=== PATIENT | female | born 1980 | race Caucasian/White ===

== ENCOUNTER → 2017-08-07 | Outpatient (CLI) | payer MEDICAID, OTHER ==
--- NOTE | 2017-08-07 10:19 | US ---
EXAMINATION TYPE: US pelvis complete transvag DATE OF EXAM: 08/07/2017 COMPARISON: US dated 01/10/2011 CLINICAL HISTORY: N94.10 Pain in Female Genitalia on Roberta. TECHNIQUE: Transvaginal (TV) and Transabdominal (TA) . Transabdominal sonographic images of the pel vis were acquired. Transvaginal sonographic images were medically necessary to better assess the fol lowing anatomy: rt ovary. Date of LMP: 07/24/2017 EXAM MEASUREMENTS: Uterus: 8.2 x 3.9 x 6.2 cm Endometrial Stripe: 0.6 cm Right Ovary: 2.6 x 1.1 x 2.8 cm Left Ovary: 2.0 x 1.5 x 2.1 cm 1. Uterus: Retroverted wnl 2. Endometrium: wnl 3. Right Ovary: wnl 4. Left Ovary: Dominant follicle measures 1.3 cm with peripheral vascular flow. 5. Bilateral Adnexa: wnl 6. Posterior cul-de-sac: trace free fluid IMPRESSION: Dominant left ovarian follicle with peripheral vascular flow, likely physiologic but coul d represent an involuting cyst. Trace fluid within the posterior cul-de-sac is likely physiologic.
== END | disposition home or self-care (01) ==
LOC: RADUSWWP 08:26
PROVIDERS: ATTEND Family Medicine
DX: N94.10 Unspecified dyspareunia (principal)
CPT/HCPCS: 76830; 76856

== ENCOUNTER 2018-11-13 15:50 | Emergency (ER) | payer OTHER, MEDICAID ==
[2018-11-13 15:53] VITALS: BP 119/76; PULSE 82; RESP 20; TEMP 97.9
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
--- NOTE | 2018-11-13 16:39 | XR ---
EXAMINATION TYPE: XR chest 2V DATE OF EXAM: 11/13/2018 COMPARISON: None HISTORY: Pain TECHNIQUE: Frontal and lateral views of the chest are obtained. FINDINGS: Heart and mediastinum are normal. Lungs are clear. Diaphragm is normal. Bony thorax appear s normal. IMPRESSION: Normal chest.
--- NOTE | 2018-11-13 16:40 | XR ---
EXAMINATION TYPE: XR lumbar spine 2 or 3V DATE OF EXAM: 11/13/2018 COMPARISON: NONE HISTORY: Pain TECHNIQUE: 3 views FINDINGS: Lumbar vertebra have normal spacing and alignment. Posterior elements are intact. Sacroilia c joints are intact. There is no compression fracture. IMPRESSION: Negative lumbar spine exam.
[2018-11-13] MEDS ORDERED: traMADol 50 MG STARTER PACK 3 TAB BTL PO STA (16:44)
== END 2018-11-13 17:05 | disposition home or self-care (01) ==
LOC: EC 15:50
DX: S09.90XA Unspecified injury of head, initial encounter (principal); R51 Headache; M54.5 Low back pain; Z88.0 Allergy status to penicillin; V89.2XXA Person injured in unspecified motor-vehicle accident, traffic, initial encounter; Y92.410 Unspecified street and highway as the place of occurrence of the external cause
CPT/HCPCS: 70450; 71046; 72100; 72125; 99284

== ENCOUNTER → 2021-11-26 | Outpatient (CLI) | payer BC ==
[2021-11-27 01:45] LABS: Basophils # (A) 0.09 X 10*3/uL (0.00-0.10); Basophils % (A) 1.3 %; Eosinophils % (A) 2.8 %; HCT 42.2 % (37.2-46.3); HGB 13.1 g/dL (12.0-15.0); Immature Grans, Automated 0.3 %; Lymphocytes # (A) 1.76 X 10*3/uL (0.90-5.00); Lymphocytes % (A) 24.5 %; MCV 93.4 fL (80.0-97.0); Mean Platelet Volume 9.9 fL (9.5-12.2); Monocytes # (A) 0.42 X 10*3/uL (0.20-1.00); Monocytes % (A) 5.8 %; NRBC Per 100 WBC 0 /100 WBCS (0.0-0.0); Neutrophils % (A) 65.3 %; Platelet Count 335 X 10*3/uL (140-440); RBC 4.52 X 10*6/uL (4.10-5.20); RDW 13.8 % (11.5-14.5); WBC 7.19 X 10*3/uL (4.50-10.00)
[2021-11-27 11:27] LABS: T4, Free (Free Thyroxine) 1.11 ng/dL (0.800-1.800)
== END | disposition home or self-care (01) ==
LOC: LABPAT 15:19
PROVIDERS: ATTEND Obstetrics & Gynecology
DX: Z01.812 Encounter for preprocedural laboratory examination (principal); E03.9 Hypothyroidism, unspecified; N93.8 Other specified abnormal uterine and vaginal bleeding
CPT/HCPCS: 84439; 84443; 84481; 85025; 86376

== ENCOUNTER → 2021-12-23 | Day surgery (SDC) | payer BC ==
[~2021-12-23] MED LIST: DEXAMETHASONE SOD PHOSPHATE 4 MG/ML 1 ML VIAL IVP ONE; HYDROmorphone 0.5 MG/0.5 ML SYRINGE IVP ONE; KETOROLAC 15 MG/ML 1 ML VIAL ONE; LACTATED RINGERS 1,000 ML IV ONE; LIDOCAINE 2% INJ 20 MG/ML (2 ML VIAL) ONE; MIDAZOLAM 2 MG/2 ML VIAL ONE; ONDANSETRON 4 MG/2 ML VIAL IVP ONE; ONDANSETRON 4 MG/2 ML VIAL ONE; PROPOFOL 10 MG/ML 20 ML VIAL IV ONE; Pre Op ABX Message 1 EACH MISC MISCELLANE ONE; fentaNYL (PF) 50 MCG/ML 2 ML AMP ONE
[2021-12-23 08:09] VITALS: TEMP 96.9
--- NOTE | 2021-12-23 08:14 | P.OP ---
Date of Procedure: 12/23/21 Preoperative Diagnosis: Menometrorrhagia Postoperative Diagnosis: Same Procedure(s) Performed: Diagnostic hysteroscopy and NovaSure endometrial ablation Anesthesia: MARU Surgeon: Juanita Galvez Estimated Blood Loss (ml): 5 IV fluids (ml): 200 Urine output (ml): 25 Pathology: none sent Condition: stable Disposition: PACU Indications for Procedure: Menometrorrhagia Operative Findings: Fluffy and debris filled endometrial cavity Description of Procedure: After the patient was met in the preoperative holding area and all questions were answered, she was taken to the operating room where appropriate timeout procedure was undertaken. She was then positioned, prepped and draped in the dorsal lithotomy position. Exam under anesthetic was undertaken. Bladder was drained for a small amount of clear urine. Speculum was placed in the vagina and the cervix was grasped anteriorly with a single-tooth tenaculum. Paracervical block with lidocaine plus epinephrine was placed. Uterus was sounded to 9 cm. The cervix was then sequentially dilated with Hegar dilators to allow for passage of the diagnostic hysteroscope. The hysteroscope was introduced however poor visualization of was noted secondary to very fluffy endometrium and debris in the cavity consistent with the patient's current bleeding. The camera was removed and the cervix was further dilated to allow for passage of the NovaSure ablation device. The device was inserted with a cavity length of 5.5 cm and width of 3.6 cm. Cavity assessment test was passed without alarm. The device was enabled for treatment cycle of 73 seconds with a power of 109 W. Following cessation of the treatment cycle the device was removed and the hysteroscope was reintroduced. Desiccation of the endometrium was appreciated. All instruments were then removed from the uterus. The cervix was observed and no active bleeding was noted. The patient was therefore awoken from anesthetic and transported recovery room in good condition.
[2021-12-23 08:49] VITALS: RESP 20
[2021-12-23 09:03] VITALS: BP 126/90; PULSE 72
== END | disposition home or self-care (01) ==
LOC: OR 06:24
PROVIDERS: ATTEND Obstetrics & Gynecology
DX: N92.1 Excessive and frequent menstruation with irregular cycle (principal); E03.9 Hypothyroidism, unspecified
CPT/HCPCS: 81025; 58563; J2250; J1100; J2405; J3010; J1885; J2704; J1170; J2001